=== PATIENT | female | born 1960 | race African-American/Black ===

== ENCOUNTER → 2017-08-02 15:05 | Outpatient (CLI) | payer OTHER, SELFPAY ==
--- NOTE | 2017-08-02 | DI.CT.S_ITS ---
PROCEDURE: CT CHEST WO CON INDICATIONS: 57 year-old female with back pain and shortness of breath after catheter ablation July 13, 2017. Possible esophageal perforation. TECHNIQUE: Noncontrast 5 mm thick sections acquired from the pulmonary apices to the posterior costophrenic angles. 7 mm thick coronal and sagittal MIP reformats were then acquired. For radiation dose reduction, the following was used: automated exposure control, adjustment of mA and/or kV according to patient size. COMPARISON: None. FINDINGS: Image quality: Excellent. Lungs and pleura: No acute air space opacities. No pleural effusions or pneumothorax. Central and peripheral airways are patent and normal in caliber. Mediastinum: Heart size is normal. No pericardial effusion. No mediastinal adenopathy by size criteria. No pneumomediastinum. Thoracic aorta and central pulmonary arteries are normal in size. Esophagus is normal in caliber and wall thickness. No hiatal hernia. Bones and chest wall: No suspicious bony lesions. No vertebral body compression fractures. No axillary or supraclavicular adenopathy by size criteria. Thyroid gland is normal in size. Abdomen: Visualized upper abdominal solid organs and bowel loops appear normal in the absence of contrast. IMPRESSION: No secondary findings to suggest transmural esophageal perforation. If there is persistent clinical concern for occult esophageal mucosal injury, consider barium swallow for further evaluation. Dictated by: Rusty Melara M.D. on 08/02/2017 at 15:42 Approved by: Rusty Melara M.D. on 08/02/2017 at 15:48
== END ==
PROVIDERS: PCP Family Medicine; Visit Provider Internal Medicine Cardiovascular Disease
DX: R06.02 Shortness of breath (principal); M54.9 Dorsalgia, unspecified
CPT/HCPCS: 71250

== ENCOUNTER → 2017-11-04 10:41 | Outpatient (CLI) | payer OTHER, SELFPAY ==
--- NOTE | 2017-11-04 | DI.MG.S_ITS ---
BILATERAL DIGITAL SCREENING MAMMOGRAM 3D/2D WITH CAD: 11/04/2017 CLINICAL: Routine screening. Comparison is made to exam dated: 08/17/2014 mammogram - [facility]. The tissue of both breasts is heterogeneously dense. This may lower the sensitivity of mammography. Current study was also evaluated with a Computer Aided Detection (CAD) system. No significant masses, calcifications, or other findings are seen in either breast. There has been no significant interval change. IMPRESSION: NEGATIVE There is no mammographic evidence of malignancy. A 1 year screening mammogram is recommended. This exam was interpreted at Station ID: [id number]. NOTE: For mammograms, a report in lay terms will be sent to the patient. Approximately 15% of breast malignancies will not be visualized mammographically. In the management of a palpable breast mass, a negative mammogram must not discourage biopsy of a clinically suspicious lesion. Electronically Signed By: Fabrice smith/desean:11/04/2017 20:25:20 letter sent: Normal Exam ACR BI-RADS Category 1: Negative [id number]
== END ==
PROVIDERS: PCP Family Medicine; Visit Provider Family Medicine
DX: Z12.31 Encounter for screening mammogram for malignant neoplasm of breast (principal)
CPT/HCPCS: 77063; 77067